=== PATIENT | female | born 1930 | race Caucasian/White ===

== ENCOUNTER 2017-11-18 14:46 | Emergency (ER) | payer MEDICARE ==
[2017-11-18 15:04] VITALS: PULSE 80
--- NOTE | 2017-11-18 15:10 | ERPHSYRPT ---
- History of Present Illness Time Seen by Provider: 11/18/17 15:07 Source: patient, EMS Exam Limitations: no limitations Patient Subjective Stated Complaint: c/o pain to right upper arm intermittently over the past month. denies injury. Triage Nursing Assessment: to cot per ems cot. skin w/d, color normal, resp easy. no injury noted to arm. good radial pulse. Physician History: The patient is an 87-year-old right-handed female who [facility] she has complained of intermittent right arm and shoulder pain for about 2 months. She thinks that the nurses lift her too quickly by using her arms. She complains also that she slipped 2 weeks ago while sitting on a plastic chair in the shower. She moves her right arm without any difficulty. She did not take any Tylenol or ibuprofen. She states "I just want an x-ray". Occurred: other (2 months) Method of Injury: unknown Quality: intermittent, aching Severity of Pain-Max: moderate Severity of Pain-Current: mild Extremities Pain Location: shoulder: right, arm: right Modifying Factors: Improves With: nothing. Worsens With: pain medication Associated Symptoms: none Allergies/Adverse Reactions: codeine Allergy (Verified 11/18/17 15:05) Home Medications: Acetaminophen 325 mg [Tylenol 325 mg] 325 mg PO Q4HPRN PRN 11/18/17 [ History] Aspirin EC 81 mg [Ecotrin 81 mg] 81 mg PO DAILY 11/18/17 [History] Atorvastatin Calcium [Lipitor] 20 mg PO HS 11/18/17 [History] Calcium Carbonate/Vitamin D3 [Vitamin D-3 400 Units Tablet] 1 each PO DAILY [History] Docusate Sodium 100 mg [Colace 100 MG] 100 mg PO DAILY 11/18/17 [History] Gabapentin [Neurontin] 100 mg PO HS 11/18/17 [History] Levothyroxine Sodium 100 Mcg [Synthroid 100 Mcg] 100 mcg PO DAILY 11/18/17 [History] Lisinopril 10 mg [Zestril 10 MG] 10 mg PO HS 11/18/17 [History] Lutein 40 mg PO HS 11/18/17 [History] Meclizine HCl 25 mg [Antivert 25 mg] 25 mg PO Q12H PRN PRN 11/18/17 [ History] Vitamin E 400 Units [Vitamin E 400 UNIT SOFTGEL] 400 unit PO DAILY [History] Hx Tetanus, Diphtheria Vaccination/Date Given: No Hx Influenza Vaccination/Date Given: No Hx Pneumococcal Vaccination/Date Given: Yes - Review of Systems Constitutional: No Fever, No Chills Eyes: No Symptoms Ears, Nose, & Throat: No Symptoms Respiratory: No Cough, No Dyspnea Cardiac: No Chest Pain, No Edema, No Syncope Abdominal/Gastrointestinal: No Abdominal Pain, No Nausea, No Vomiting, No Diarrhea Genitourinary Symptoms: No Dysuria Musculoskeletal: Myalgias Skin: No Rash Neurological: No Dizziness, No Focal Weakness, No Sensory Changes Psychological: No Symptoms Endocrine: No Symptoms Hematologic/Lymphatic: No Symptoms Immunological/Allergic: No Symptoms All Other Systems: Reviewed and Negative - Past Medical History Pertinent Past Medical History: Yes Neurological History: Dementia ENT History: Cataracts Endocrine Medical History: Diabetes Type II, Hypothyroidism GI Medical History: Other Other Medical History: constipation - Past Surgical History Past Surgical History: Yes Gastrointestinal: Appendectomy, Cholecystectomy Musculoskeletal: Orthopedic Surgery Other Surgical History: artificial left knee - Social History Smoking Status: Never smoker Exposure to second hand smoke: No Drug Use: none Patient Lives Alone: No - Female History Hx Now: No - Nursing Vital Signs Nursing Vital Signs: Initial Vital Signs Temperature 97.9 F 11/18/17 14:49 Pulse Rate 80 11/18/17 14:49 Respiratory Rate 18 11/18/17 14:49 Blood Pressure 138/59 11/18/17 14:49 O2 Sat by Pulse Oximetry 97 11/18/17 14:49 Pain Scale Pain Intensity 0 - Physical Exam General Appearance: alert Eyes, Ears, Nose, Throat Exam: moist mucous membranes Neck Exam: non-tender, supple Cardiovascular/Respiratory Exam: chest non-tender, normal breath sounds, regular rate/rhythm, no respiratory distress Abdominal Exam: non-tender, No guarding Back Exam: normal inspection, No vertebral tenderness Shoulder Exam: non-tender, normal ROM Elbow/Forearm Exam: normal inspection Wrist Exam: normal inspection Hand Exam: normal inspection Neuro/Tendon Exam: normal sensation, normal motor functions Mental Status Exam: alert, oriented x 3, cooperative Skin Exam: normal color, warm, dry SpO2 Interpretation: normal SpO2: 97 Oxygen Delivery: Room Air - Radiology Exams Right Humerus X-ray Interpretation: Interpreted by me, Displaced Fracture (right humeral neck fracture) Right Shoulder X-ray Interpretation: Interpreted by me, Displaced Fracture (right humeral neck fracture) Ordered Tests: Active Orders 24 hr Category Date Time Status Sling Application STAT Care 11/18/17 16:31 Active HUMERUS Stat Exams 11/18/17 15:11 Taken SHOULDER Stat Exams 11/18/17 15:11 Taken Medication Summary Discontinued Medications Generic Name Dose Route Start Last Admin Trade Name Freq PRN Reason Stop Dose Admin Acetaminophen 1,000 mg 11/18/17 15:11 11/18/17 15:22 Tylenol Extra Strength 500 Mg PO 11/18/17 15:12 1,000 mg STAT STA Administration Acetaminophen Confirm 11/18/17 15:21 Tylenol Extra Strength 500 Mg Administered 11/18/17 15:22 Dose 1,000 mg .ROUTE .STK-MED ONE - Progress Progress: unchanged Discussed with : Mack Counseled pt/family regarding: diagnosis, rad results - Departure Time of Disposition: 16:30 Departure Disposition: Transfer ([facility] per Dr Giron and Dr Joshi) Clinical Impression: Fracture of neck of right humerus Condition: Good Critical Care Time: No Referrals: YNES BROWN [Primary Care Provider] -
[2017-11-18] MEDS ORDERED: TYLENOL EXTRA STRENGTH 500 MG PO STA (15:11)
[2017-11-18] MEDS ORDERED: TYLENOL EXTRA STRENGTH 500 MG ONE (15:21)
[2017-11-18 17:04] VITALS: BP 154/94; O2SAT 99
--- NOTE | 2017-11-18 21:01 | XRAY ---
Indication: Pain following fall 2 weeks ago. Comparison: None 3 views of the right shoulder demonstrates osteopenia, remote appearing angulated/impacted humeral neck fracture, moderate glenohumeral/AC degenerative arthropathy, and multilevel spinal degenerative spondylosis. No other bony, articular, or soft tissue abnormalities.
--- NOTE | 2017-11-18 21:01 | XRAY ---
Indication: Pain following fall 2 weeks ago. Comparison: None 2 views of the right humerus demonstrates osteopenia, remote appearing angulated/impacted humeral neck fracture, moderate glenohumeral/AC degenerative arthropathy, and multilevel spinal degenerative spondylosis. No other bony, articular, or soft tissue abnormalities.
== END 2017-11-18 17:37 | disposition short-term general hospital (02) ==
LOC: ED 14:46
DX: S42.211A Unspecified displaced fracture of surgical neck of right humerus, initial encounter for closed fracture (principal); Z79.899 Other long term (current) drug therapy
CPT/HCPCS: 36000; 73030; 73060; 99285; A9270-GY

== ENCOUNTER 2017-12-18 06:49 | Emergency (ER) | payer MEDICARE ==
[2017-12-18] MEDS ORDERED: Zofran 4 MG/2 ML VIAL IV ONE (07:13)
[2017-12-18] MEDS ORDERED: Sodium Chloride 0.9% 1000 ML 1,000 ML IV SCH (07:15)
--- NOTE | 2017-12-18 07:18 | ERPHSYRPT ---
- History of Present Illness Time Seen by Provider: 12/18/17 07:06 Source: patient, EMS Exam Limitations: no limitations Patient Subjective Stated Complaint: UNSURE HOW SHE FELL. [facility]IV[facility] TOLD ems THAT SHE FELL BACKWARDS. PAIN IN MID BACK. Triage Nursing Assessment: ALERT AND IN DISTRESS. PAIN IN MIDBACK.. REMOVED FROM BACK BOARD WITH MD HUNT. PAIN IN RIGHT RIBS. STAES FEELS LIKE BREATHING NOT RIGHT. DENIES LOC. NICOLASA. Physician History: 87 y/o female sent from assisted living facility for unwitnessed fall. Pt says she just collapsed while walking back from the bathroom. Pt arrives with severe mid back pain and right rib pain. Pt is on ASA and there was no LOC. Pt describes the pain as sharp, constant, 7/10, worse with movement and pt has not taken any pain meds. Pt denies any shortness of breath, abdominal pain, headache or neck pain. Occurred: just prior to arrival Reason for Fall: unknown Injuries/Pain Location: chest, back, middle Loss of Consciousness: no loss of consciousness Quality: sharpness Severity of Pain-Max: severe Severity of Pain-Current: severe Modifying Factors: Improves With: nothing Associated Symptoms (Fall): denies symptoms Allergies/Adverse Reactions: codeine Allergy (Verified 11/18/17 15:05) Home Medications: Acetaminophen 325 mg [Tylenol 325 mg] 325 mg PO Q4HPRN PRN 11/18/17 [ History] Aspirin EC 81 mg [Ecotrin 81 mg] 81 mg PO DAILY 11/18/17 [History] Atorvastatin Calcium [Lipitor] 20 mg PO HS 11/18/17 [History] Calcium Carbonate/Vitamin D3 [Vitamin D-3 400 Units Tablet] 1 each PO DAILY [History] Docusate Sodium 100 mg [Colace 100 MG] 100 mg PO DAILY 11/18/17 [History] Gabapentin [Neurontin] 100 mg PO HS 11/18/17 [History] Insulin NPH Human Isophane [Humulin N] 10 units SQ HS 11/18/17 [History] Insulin NPH Human Isophane [Humulin N] 20 unit SQ DAILY 11/18/17 [History] Levothyroxine Sodium 100 Mcg [Synthroid 100 Mcg] 100 mcg PO DAILY 11/18/17 [History] Lisinopril 10 mg [Zestril 10 MG] 10 mg PO HS 11/18/17 [History] Lutein 40 mg PO HS 11/18/17 [History] Meclizine HCl 25 mg [Antivert 25 mg] 25 mg PO Q12H PRN PRN 11/18/17 [ History] Vitamin E 400 Units [Vitamin E 400 UNIT SOFTGEL] 400 unit PO DAILY [History] Hx Tetanus, Diphtheria Vaccination/Date Given: No Hx Influenza Vaccination/Date Given: Yes Hx Pneumococcal Vaccination/Date Given: Yes - Review of Systems Constitutional: No Fever, No Chills Eyes: No Symptoms Ears, Nose, & Throat: No Symptoms Respiratory: No Cough, No Dyspnea Cardiac: Chest Pain, No Edema, No Syncope Abdominal/Gastrointestinal: No Abdominal Pain, No Nausea, No Vomiting, No Diarrhea Genitourinary Symptoms: No Dysuria Musculoskeletal: Back Pain, No Neck Pain Skin: No Rash Neurological: No Dizziness, No Focal Weakness, No Sensory Changes Psychological: No Symptoms Endocrine: No Symptoms All Other Systems: Reviewed and Negative - Past Medical History Pertinent Past Medical History: Yes Neurological History: Dementia ENT History: Cataracts Endocrine Medical History: Diabetes Type II, Hypothyroidism GI Medical History: Other Other Medical History: constipation - Past Surgical History Past Surgical History: Yes Gastrointestinal: Appendectomy, Cholecystectomy Musculoskeletal: Orthopedic Surgery Other Surgical History: artificial left knee - Social History Smoking Status: Never smoker Exposure to second hand smoke: No Drug Use: marijuana Patient Lives Alone: No - Female History Hx Now: No - Nursing Vital Signs Nursing Vital Signs: Initial Vital Signs Pulse Rate 86 12/18/17 06:55 Respiratory Rate 20 12/18/17 06:55 Blood Pressure 193/73 12/18/17 06:55 O2 Sat by Pulse Oximetry 98 12/18/17 06:55 Pain Scale Pain Intensity [Right Anterior 7 Generalized] Pain Intensity 1 - [place] Coma Score Best Eye Response ([place]): (4) open spontaneously Best Verbal Response ([place]): (5) oriented Best Motor Response ([place]): (6) obeys commands [place] Total: 15 - Physical Exam General Appearance: moderate distress, alert Head Injury: no evidence of injury Eye Exam: PERRL/EOMI ENT Exam: airway nml Neck Exam: supple, trachea midline, normal inspection, No tenderness Respiratory/Chest Exam: normal breath sounds, No chest tenderness, No respiratory distress Cardiovascular Exam: normal heart sounds, regular rate/rhythm Gastrointestinal Exam: soft, No tenderness, No distention, No guarding, No ecchymosis Back Exam: normal inspection, vertebral tenderness, point tenderness Extremity Exam: normal inspection, normal range of motion, pelvis stable, No deformities Neurologic Exam: alert, oriented x 3, cooperative, sensation nml, No motor deficits Skin Exam: normal color, warm, dry SpO2: 98 Oxygen Delivery: Room Air - Course Nursing assessment & vital signs reviewed: Yes EKG Interpreted by Me: RATE, NORMAL AXIS, NORMAL INTERVALS, NORMAL QRS, Right Bundle Branch Block Ordered Tests: Active Orders 24 hr Category Date Time Status [employer] STAT Care 12/18/17 07:14 Active Cervical Collar Application STAT Care 12/18/17 09:42 Active EKG-ER Only STAT Care 12/18/17 07:13 Active Flannery [Catheter-[place] Flannery] STAT Care 12/18/17 07:18 Active IV Insertion STAT Care 12/18/17 07:13 Active ABDOMEN AND PELVIS W/0 CONTRAS [CT] Stat Exams 12/18/17 07:14 Completed CERVICAL SPINE WO CONTRAST [CT] Stat Exams 12/18/17 07:14 Completed CHEST WITHOUT CONTRAST [CT] Stat Exams 12/18/17 07:13 Completed HEAD WITHOUT CONTRAST [CT] Stat Exams 12/18/17 07:14 Completed RECONSTRUCTION [CT] Stat Exams 12/18/17 07:13 Completed RECONSTRUCTION [CT] Stat Exams 12/18/17 07:14 Completed CBC W DIFF Stat Lab 12/18/17 07:15 Completed CMP Stat Lab 12/18/17 07:15 Completed PROTIME WITH INR Stat Lab 12/18/17 07:15 Completed PTT Stat Lab 12/18/17 07:15 Completed TROPONIN Q3H Lab 12/18/17 07:15 Completed UA W/ MICROSCOPIC Stat Lab 12/18/17 09:33 Completed Medication Summary Generic Name Dose Route Start Last Admin Trade Name Freq PRN Reason Stop Dose Admin Sodium Chloride 1,000 mls @ 100 mls/hr 12/18/17 07:15 12/18/17 07:25 Sodium Chloride 0.9% 1000 Ml IV 01/17/18 07:14 100 mls/hr .Q10H GANGA Administration Discontinued Medications Generic Name Dose Route Start Last Admin Trade Name Marylou PRN Reason Stop Dose Admin Acetaminophen 1,000 mg 12/18/17 07:37 12/18/17 07:44 Tylenol Extra Strength 500 Mg PO 12/18/17 07:38 1,000 mg ONCE ONE Administration Acetaminophen Confirm 12/18/17 07:40 Tylenol Extra Strength 500 Mg Administered 12/18/17 07:41 Dose 1,000 mg .ROUTE .STK-MED ONE Morphine Sulfate 4 mg 12/18/17 07:13 12/18/17 07:33 Morphine Sulfate 4 Mg Inj IV 12/18/17 07:14 Not Given STAT ONE Morphine Sulfate Confirm 12/18/17 07:20 Morphine Sulfate 4 Mg Inj Administered 12/18/17 07:21 Dose 4 mg .ROUTE .STK-MED ONE Ondansetron HCl 4 mg 12/18/17 07:13 12/18/17 07:24 Zofran 4 Mg/2 Ml Vial IV 12/18/17 07:14 4 mg STAT ONE Administration Ondansetron HCl Confirm 12/18/17 07:20 Zofran 4 Mg/2 Ml Vial Administered 12/18/17 07:21 Dose 4 mg .ROUTE .STK-MED ONE Lab/Rad Data: Laboratory Result Diagrams 12/18/17 07:15 12/18/17 07:15 Laboratory Results 12/18/17 12/18/17 12/18/17 Range/Units 09:33 07:15 07:15 WBC (4.0-10.5) K/mm3 RBC (4.1-5.4) M/mm3 Hgb (12.0-16.0) gm/dl Hct (35-47) % MCV (78-100) fl MCH (26-32) pg MCHC (32-36) g/dl RDW (11.5-14.0) % Plt Count (150-450) K/mm3 MPV (6-9.5) fl Gran % (36.0-66.0) % Eos # (Auto) (0-0.5) Absolute Lymphs (auto) (1.0-4.6) Absolute Monos (auto) (0.0-1.3) Lymphocytes % (24.0-44.0) % Monocytes % (0.0-12.0) % Eosinophils % (0.00-5.0) % Basophils % (0.0-0.4) % Absolute Granulocytes (1.4-6.9) Basophils # (0-0.4) PT 12.0 (9.95-12.35) SECONDS INR 1.08 (0.8-3.0) APTT 30.4 (25.3-37.0) SECONDS Sodium (137-145) mmol/L Potassium (3.5-5.1) mmol/L Chloride (98-107) mmol/L Carbon Dioxide (22-30) mmol/L Anion Gap (5-15) MEQ/L BUN (7-17) mg/dL Creatinine (0.52-1.04) mg/dL Estimated GFR ML/MIN Glucose (74-106) mg/dL Calcium (8.4-10.2) mg/dL Total Bilirubin (0.2-1.3) mg/dL AST (14-36) U/L ALT (0-35) U/L Alkaline Phosphatase (38-126) U/L Troponin I < 0.012 (0.000-0.034) ng/mL Serum Total Protein (6.3-8.2) g/dL Albumin (3.5-5.0) g/dL Ur Collection Type CLEAN CATCH Urine Color YELLOW (YELLOW) Urine Appearance CLEAR (CLEAR) Urine pH 5.0 (5-6) Ur Specific [place] 1.010 (1.005-1.025) Urine Protein NEGATIVE (Negative) Urine Ketones NEGATIVE (NEGATIVE) Urine Blood NEGATIVE (0-5) Volodymyr/ul Urine Nitrite NEGATIVE (NEGATIVE) Urine Bilirubin NEGATIVE (NEGATIVE) Urine Urobilinogen NORMAL (0-1) mg/dL Ur Leukocyte Esterase 1+ (NEGATIVE) Urine Microscopic RBC 0-2 (0-2) /HPF Urine Microscopic WBC 0-2 (0-5) /HPF Ur Epithelial Cells RARE (FEW) /HPF Urine Bacteria FEW (NEGATIVE) /HPF Urine Mucus SLIGHT (NEGATIVE) /HPF Urine Culture Reflexed NO (NO) Urine Glucose NEGATIVE (NEGATIVE) mg/dL Specimen Received 12/18/17 0930 12/18/17 12/18/17 Range/Units 07:15 07:15 WBC 7.5 (4.0-10.5) K/mm3 RBC 4.29 (4.1-5.4) M/mm3 Hgb 13.0 (12.0-16.0) gm/dl Hct 40.2 (35-47) % MCV 93.7 (78-100) fl MCH 30.3 (26-32) pg MCHC 32.3 (32-36) g/dl RDW 12.9 (11.5-14.0) % Plt Count 180 (150-450) K/mm3 MPV 9.8 H (6-9.5) fl Gran % 52.6 (36.0-66.0) % Eos # (Auto) 0.20 (0-0.5) Absolute Lymphs (auto) 2.36 (1.0-4.6) Absolute Monos (auto) 0.97 (0.0-1.3) Lymphocytes % 31.6 (24.0-44.0) % Monocytes % 13.0 H (0.0-12.0) % Eosinophils % 2.7 (0.00-5.0) % Basophils % 0.1 (0.0-0.4) % Absolute Granulocytes 3.93 (1.4-6.9) Basophils # 0.01 (0-0.4) PT (9.95-12.35) SECONDS INR (0.8-3.0) APTT (25.3-37.0) SECONDS Sodium 142 (137-145) mmol/L Potassium 4.3 (3.5-5.1) mmol/L Chloride 103 (98-107) mmol/L Carbon Dioxide 29 (22-30) mmol/L Anion Gap 13.9 (5-15) MEQ/L BUN 22 H (7-17) mg/dL Creatinine 0.81 (0.52-1.04) mg/dL Estimated GFR > 60 ML/MIN Glucose 95 (74-106) mg/dL Calcium 9.5 (8.4-10.2) mg/dL Total Bilirubin 0.40 (0.2-1.3) mg/dL AST 24 (14-36) U/L ALT 14 (0-35) U/L Alkaline Phosphatase 89 (38-126) U/L Troponin I (0.000-0.034) ng/mL Serum Total Protein 7.3 (6.3-8.2) g/dL Albumin 4.1 (3.5-5.0) g/dL Ur Collection Type Urine Color (YELLOW) Urine Appearance (CLEAR) Urine pH (5-6) Ur Specific [place] (1.005-1.025) Urine Protein (Negative) Urine Ketones (NEGATIVE) Urine Blood (0-5) Volodymyr/ul Urine Nitrite (NEGATIVE) Urine Bilirubin (NEGATIVE) Urine Urobilinogen (0-1) mg/dL Ur Leukocyte Esterase (NEGATIVE) Urine Microscopic RBC (0-2) /HPF Urine Microscopic WBC (0-5) /HPF Ur Epithelial Cells (FEW) /HPF Urine Bacteria (NEGATIVE) /HPF Urine Mucus (NEGATIVE) /HPF Urine Culture Reflexed (NO) Urine Glucose (NEGATIVE) mg/dL Specimen Received - Progress Progress: unchanged Progress Note: 12/18/17 10:[address] cervical spine shows a C1 posterior arch fracture and C6 vertebral body fracture. The CT T spine shows a T3 compression deformity and a right 4th rib fracture. Pt is refusing any pain meds. The cardiac workup is negative. I spoke to the son who wants the patient transferred to . Pt has been accepted by trauma surgeon, Dr Rubin at [facility]. - Departure Time of Disposition: 10:33 Departure Disposition: Transfer Clinical Impression: Cervical spine fracture Qualifiers: Encounter type: initial encounter Cervical vertebra fracture level: C1 Fracture type: closed Fracture morphology: unspecified fracture morphology Fracture alignment: nondisplaced Qualified Code(s): S12.001A - Unspecified nondisplaced fracture of first cervical vertebra, initial encounter for closed fracture C6 cervical fracture Qualifiers: Encounter type: initial encounter Fracture type: closed Fracture morphology: unspecified fracture morphology Fracture alignment: nondisplaced Qualified Code( s): S12.501A - Unspecified nondisplaced fracture of sixth cervical vertebra, initial encounter for closed fracture Traumatic compression fracture of T3 thoracic vertebra Qualifiers: Encounter type: initial encounter Fracture type: closed Qualified Code(s): S22.030A - Wedge compression fracture of third thoracic vertebra, initial encounter for closed fracture Rib fracture Qualifiers: Encounter type: initial encounter Rib fracture type: single rib Fracture type: closed Laterality: right Qualified Code(s): S22.31XA - Fracture of one rib, right side, initial encounter for closed fracture Condition: Fair Critical Care Time: Yes Critical Care Time(excluding separately billable procedures): 30-74 minutes Referrals: YNES BROWN [Primary Care Provider] -
[2017-12-18] MEDS ORDERED: MORPHINE SULFATE 4 MG INJ ONE (07:20)
[2017-12-18] MEDS ORDERED: Sodium Chloride 0.9% 1000 ML 1,000 ML ONE (07:20)
[2017-12-18] MEDS ORDERED: Zofran 4 MG/2 ML VIAL ONE (07:20)
[2017-12-18] MEDS: MORPHINE SULFATE 4 MG INJ IV ONE ×2 (07:24→07:33)
[2017-12-18 07:36] LABS: BASOPHIL % 0.1 % (0.0-0.4); Basophil (Absolute #) 0.01 (0-0.4); Eosinophil % 2.7 % (0.00-5.0); Granulocyte Absolute (ANC) 3.93 (1.4-6.9); Granulocytes % 52.6 % (36.0-66.0); Hematocrit 40.2 % (35-47); Lymphocyte (Absolute #) 2.36 (1.0-4.6); Lymphocytes % 31.6 % (24.0-44.0); Mean Cell Volume 93.7 fl (78-100); Mean Corpuscular Hemoglobin 30.3 pg (26-32); Mean Corpuscular Hgb Concent. 32.3 g/dl (32-36); Mean Platelet Volume 9.8 fl (6-9.5); Monocyte (Absolute #) 0.97 (0.0-1.3); Platelet Count 180 K/mm3 (150-450); Red Blood Count 4.29 M/mm3 (4.1-5.4); Red Cell Distribution Width 12.9 % (11.5-14.0); White Blood Count 7.5 K/mm3 (4.0-10.5)
[2017-12-18] MEDS ORDERED: TYLENOL EXTRA STRENGTH 500 MG PO ONE (07:37)
[2017-12-18] MEDS ORDERED: TYLENOL EXTRA STRENGTH 500 MG ONE (07:40)
[2017-12-18 07:53] LABS: ALBUMIN 4.1 g/dL (3.5-5.0); ALKALINE PHOSPHATASE 89 U/L (38-126); ANION GAP 13.9 MEQ/L (5-15); BLOOD UREA NITROGEN 22 mg/dL (7-17); CHLORIDE 103 mmol/L (98-107); Calcium 9.5 mg/dL (8.4-10.2); Carbon Dioxide 29 mmol/L (22-30); Creatinine 1 0.81 mg/dL (0.52-1.04); Glucose 95 mg/dL (74-106); Potassium 4.3 mmol/L (3.5-5.1); SGOT/AST 24 U/L (14-36); SGPT/ALT 14 U/L (0-35); SODIUM 142 mmol/L (137-145); Total Protein 7.3 g/dL (6.3-8.2)
[2017-12-18 07:59] LABS: INR 1.08 (0.8-3.0)
[2017-12-18 08:02] LABS: PTT 30.4 SECONDS (25.3-37.0)
--- NOTE | 2017-12-18 09:30 | XRAY ---
Indication: Head injury following fall. Multiple contiguous axial images obtained through the head without contrast. Comparison: None Age-appropriate global atrophy and mild periventricular degenerative micro-ischemia bilaterally. No acute intracranial hemorrhage, abnormal extra-axial fluid collection, or mass effect. Fourth ventricle is midline. Bony calvarium intact. Visualized paranasal sinuses and mastoid air cells are clear. CT cervical spine reported separately. Impression: Nonacute senile brain. CT DI 51.47
[2017-12-18 09:36] LABS: Appearance CLEAR (CLEAR); Bilirubin NEGATIVE (NEGATIVE); Blood NEGATIVE Ery/ul (0-5); Glucose NEGATIVE (NEGATIVE); Ketones NEGATIVE (NEGATIVE); Leukocyte Esterase 1+ (NEGATIVE); Nitrite NEGATIVE (NEGATIVE); Protein,Urine Dip NEGATIVE (Negative); Urobilinogen NORMAL mg/dL (0-1)
--- NOTE | 2017-12-18 09:40 | XRAY ---
Indication: Neck pain following fall. Multiple contiguous axial images obtained through the cervical spine. Two-dimensional sagittal and coronal reformatted images obtained. Comparison: None Osseous structures demineralized consistent with patient's age. Posterior arch of C1 demonstrates nondisplaced acute fracture on the right and nondisplaced healing fracture on the left. No suspicious bony lesions or spinal canal stenosis. Minimal C4-C6 degenerative endplate spurring and mild multilevel degenerative facet arthropathy, left greater than right. Sagittal and coronal reformatted images demonstrates slight straightening of cervical lordosis, positional versus paraspinal spasm. Anterior superior C6 vertebral body demonstrates nondisplaced corner fracture best seen on sagittal reconstructive images with minimal superior endplate depression less than 10%. Minimal anterior C5 anterior wedging with less than 20% height loss of uncertain chronicity. No acute compression fracture, subluxation, or jumped facet. Normal-appearing craniocervical junction. Visualized noncontrasted soft tissues demonstrates mild scattered carotid calcifications bilaterally. Bilateral jugular vein intraluminal air bubbles presumed iatrogenic. CT head and CT chest reported severally. Impression: 1. Nondisplaced C1 posterior arch fractures as detailed. 2. C6 vertebral body acute fracture. Also C5 anterior wedging deformity of uncertain chronicity. 3. Osteopenia and multilevel degenerative changes. CT DI 110.54
[2017-12-18 09:43] LABS: Bacteria FEW /HPF (NEGATIVE); Epithelial Cells RARE /HPF (FEW); Mucus SLIGHT /HPF (NEGATIVE); WBC 0-2 /HPF (0-5)
--- NOTE | 2017-12-18 09:48 | XRAY ---
Indication: Pain following fall. Multiple contiguous axial images obtained through the chest without contrast as ordered. Comparison: None Lungs demonstrates mild/moderate bilateral dependent atelectasis, minimal bibasilar fibrosis/scarring, and left upper lobe calcified granuloma. No suspicious pulmonary mass, infiltrate, effusion, or pneumothorax. Heart is not enlarged. Aorta is moderately arteriosclerotic without aneurysmal dilatation. No pathologic mediastinal lymphadenopathy. Osseous structures demineralized consistent with patient's age. Multilevel flowing endplate osteophytes. Remote appearing T3/L1 compression fractures with more than 50% height loss. Also remote appearing right 4th rib and right humeral head/neck fracture. CT abdomen reported separately. Impression: Nonacute CT chest without contrast exam with chronic features as detailed. CT DI 17.77
--- NOTE | 2017-12-18 09:54 | XRAY ---
Indication: Pain following fall. Multiple contiguous axial images obtained through the abdomen and pelvis without contrast as ordered. Comparison: None CT chest reported separately. Noncontrasted stomach and bowel loops appear nonobstructed. Previous cholecystectomy. No free fluid/air. Remaining liver, pancreas, spleen, adrenal glands, kidneys, ureters, bladder, and uterus appear unremarkable for noncontrast exam. Mild aortoiliac calcifications without AAA. Osseous structures demineralized consistent with patient's age. Mild multilevel degenerative spondylosis greatest at the lumbosacral disc level as evidenced by degenerative vacuum disc phenomena and bilateral degenerative facet hypertrophy. Remote L1 compression deformity with more than 50% height loss. Impression: 1. No acute intra-abdominal/pelvic abnormalities on this noncontrast exam. 2. Osteopenia, multilevel degenerative spondylosis, and remote L1 compression deformity. CT DI 17.77
--- NOTE | 2017-12-18 09:58 | XRAY ---
Indication: Pain following fall. Axial, coronal, and sagittal reformatted images of the lumbar spine obtained using the raw data from the CT abdomen/pelvis study of the same day. Comparison: None Osseous structures demineralized consistent with patient's age. Mild multilevel degenerative spondylosis greatest at the lumbosacral disc level as evidenced by degenerative vacuum disc phenomena and bilateral degenerative facet hypertrophy. Remote L1 compression deformity with more than 50% height loss. SI joints are bilaterally symmetric. CT abdomen/pelvis reported separately. Impression: 1. Negative acute fracture/subluxation. 2. Osteopenia, multilevel degenerative spondylosis, and remote L1 compression deformity.
--- NOTE | 2017-12-18 10:08 | XRAY ---
Indication: Pain following fall. Axial, coronal, and sagittal reformatted images of the thoracic spine obtained using the raw data from the CT chest study of the same day. Comparison: None Osseous structures demineralized consistent with patient's age. Multilevel flowing endplate osteophytes. Remote appearing T3 compression deformity with more than 50% height. Also remote appearing right 4th rib fracture. CT chest and CT lumbar spine reported separately. Impression: 1. Negative acute fracture/subluxation. 2. Osteopenia, multilevel degenerative endplate spurring, remote T3 compression deformity, and remote right 4th rib fracture.
[2017-12-18 11:27] VITALS: BP 132/73; PULSE 88; O2SAT 18
== END 2017-12-18 11:28 | disposition short-term general hospital (02) ==
LOC: ED 06:49
DX: S12.001A Unspecified nondisplaced fracture of first cervical vertebra, initial encounter for closed fracture (principal); S12.501A Unspecified nondisplaced fracture of sixth cervical vertebra, initial encounter for closed fracture; S22.030A Wedge compression fracture of third thoracic vertebra, initial encounter for closed fracture; S22.31XA Fracture of one rib, right side, initial encounter for closed fracture; W18.30XA Fall on same level, unspecified, initial encounter; Y92.129 Unspecified place in nursing home as the place of occurrence of the external cause; M54.6 Pain in thoracic spine; R07.81 Pleurodynia; R07.9 Chest pain, unspecified; Z79.899 Other long term (current) drug therapy
CPT/HCPCS: 36000; 36415; 51702; 70450; 71250; 72125; 74176; 76376; 80053; 81000; 84484; 85025; 85610; 85730; 93005; 93041; 96360; 96361; 99284; J2270; J2405; L0172; A9270-GY

== ENCOUNTER 2018-06-25 08:58 | Emergency (ER) | payer MEDICARE ==
[2018-06-25 09:08] VITALS: O2SAT 95
[2018-06-25] MEDS ORDERED: TYLENOL 325 MG PO ONE (09:21)
--- NOTE | 2018-06-25 09:27 | ERPHSYRPT ---
- History of Present Illness Time Seen by Provider: 06/25/18 09:16 Source: patient, EMS Exam Limitations: no limitations Patient Subjective Stated Complaint: PT HERE FOR A SHORT FALL, SHE STATES SHE WAS GETTING OUT OF BED AND SLIPPED OFF OF THE BED AND FELL TO GROUND, SHE CO PAIN TO LEFT SECOND TOE AND LEFT KNEE Triage Nursing Assessment: PT AERT, BUT A LITTLE UNSURE OF EVENTS, NO LOC, RESP EASY, SKIN W/D/P. NO EDEMA NOTED, Physician History: 87-year-old white female with history of dementia cataracts, diabetes, hypothyroidism, constipation. Brought by medics with complaint of pain in her left knee, pain in her left foot (tells the nurse left second toe tells me heel) also states she has some mild pain in her left lateral hip with palpation. Apparently had pain in her right elbow per medics but has no pain at this time. She states that she slipped out of bed this morning sliding down onto her bottom injuring herself. She denies any other injury she denies any neck pain she did not hit her head. Past medical history includes dementia, cataracts, diabetes type 2, hypothyroidism, constipation patient has had a cervical fracture in the past. Past surgical history includes appendectomy, cholecystectomy, left knee arthroplasty. He denies tobacco alcohol or illicit drug use. Timing/Duration: today Severity: moderate Modifying Factors: Improves With: nothing Associated Symptoms: denies symptoms Allergies/Adverse Reactions: codeine Allergy (Verified 06/25/18 09:09) Home Medications: Acetaminophen 325 mg [Tylenol 325 mg] 325 mg PO Q4HPRN PRN 11/18/17 [ History] Aspirin EC 81 mg [Ecotrin 81 mg] 81 mg PO DAILY 11/18/17 [History] Atorvastatin Calcium [Lipitor] 20 mg PO HS 11/18/17 [History] Calcium Carbonate/Vitamin D3 [Vitamin D-3 400 Units Tablet] 1 each PO DAILY [History] Docusate Sodium 100 mg [Colace 100 MG] 100 mg PO DAILY 11/18/17 [History] Gabapentin [Neurontin] 100 mg PO HS 11/18/17 [History] Insulin NPH Human Isophane [Humulin N] 10 units SQ HS 11/18/17 [History] Insulin NPH Human Isophane [Humulin N] 20 unit SQ DAILY 11/18/17 [History] Levothyroxine Sodium 100 Mcg [Synthroid 100 Mcg] 100 mcg PO DAILY 11/18/17 [History] Lisinopril 10 mg [Zestril 10 MG] 10 mg PO HS 11/18/17 [History] Lutein 40 mg PO HS 11/18/17 [History] Meclizine HCl 25 mg [Antivert 25 mg] 25 mg PO Q12H PRN PRN 11/18/17 [ History] Vitamin E 400 Units [Vitamin E 400 UNIT SOFTGEL] 400 unit PO DAILY [History] Hx Tetanus, Diphtheria Vaccination/Date Given: No Hx Influenza Vaccination/Date Given: No Hx Pneumococcal Vaccination/Date Given: Yes Immunizations Up to Date: Yes - Review of Systems Constitutional: No Fever, No Chills Eyes: No Symptoms Ears, Nose, & Throat: No Symptoms Respiratory: No Cough, No Dyspnea Cardiac: No Chest Pain, No Edema, No Syncope Abdominal/Gastrointestinal: No Abdominal Pain, No Nausea, No Vomiting, No Diarrhea Genitourinary Symptoms: No Dysuria Musculoskeletal: Other (left hip knee and foot pain.) Skin: No Rash Neurological: No Dizziness, No Focal Weakness, No Sensory Changes Psychological: No Symptoms Endocrine: No Symptoms All Other Systems: Reviewed and Negative - Past Medical History Pertinent Past Medical History: Yes Neurological History: Dementia ENT History: Cataracts Endocrine Medical History: Diabetes Type II, Hypothyroidism GI Medical History: Other Other Medical History: constipation - Past Surgical History Past Surgical History: Yes Gastrointestinal: Appendectomy, Cholecystectomy Musculoskeletal: Orthopedic Surgery Other Surgical History: artificial left knee - Social History Smoking Status: Never smoker Exposure to second hand smoke: No Drug Use: marijuana Patient Lives Alone: No - Female History Hx Last Menstrual Period: POST Hx Now: No - Nursing Vital Signs Nursing Vital Signs: Initial Vital Signs Temperature 97.2 F 06/25/18 09:01 Pulse Rate 100 H 06/25/18 09:01 Respiratory Rate 16 06/25/18 09:01 Blood Pressure 156/71 06/25/18 09:01 O2 Sat by Pulse Oximetry 95 06/25/18 09:01 Pain Scale Pain Intensity 4 - Physical Exam General Appearance: no apparent distress, other (elderly white female in no apparent distress) Eye Exam: PERRL/EOMI, eyes nml inspection Ears, Nose, Throat Exam: normal ENT inspection, TMs normal, pharynx normal, moist mucous membranes Neck Exam: normal inspection, non-tender, supple, full range of motion Respiratory Exam: normal breath sounds, lungs clear, No respiratory distress Cardiovascular Exam: regular rate/rhythm, normal heart sounds, normal peripheral pulses Gastrointestinal/Abdomen Exam: soft, normal bowel sounds, No tenderness, No mass Back Exam: normal inspection, normal range of motion, No CVA tenderness, No vertebral tenderness Extremity Exam: other (left knee mild tenderness with palpation anteriorly, left steep tender left second toe, mild tenderness with palpalpation left lateral hip full range of motion all extremities.) Neurologic Exam: alert, oriented x 3, cooperative, it admin II-XII nml as tested, normal mood/affect, nml cerebellar function, nml station & gait, sensation nml, No motor deficits Skin Exam: normal color, warm, dry, No rash SpO2 Interpretation: normal (95%) SpO2: 95 - Course Nursing assessment & vital signs reviewed: Yes - Radiology Exams Left Foot X-ray Interpretation: Discussed w/ radiologist (x-ray left foot: Osteopenia and tiny heel spurs. No other bony, articular, or soft tissue abnormalies.) Pelvis X-ray Interpretation: Discussed w/ radiologist (X-ray pelvis: Osteopenia and mild degenerative changes of both hips and visualized lower lumbar spine. No other bony, articular, or soft tissue abnormalities) Left Knee X-ray Interpretation: Discussed w/ radiologist (X-ray left knee: Osteopenia and total knee arthroplasty with intact articulation/prosthesis. No other bony, articular, or soft tissue abnormalities.) Ordered Tests: Active Orders 24 hr Category Date Time Status FOOT (MINIMUM 3 VIEWS) Stat Exams 06/25/18 09:21 Completed KNEE (1 OR 2 VIEW) Stat Exams 06/25/18 09:21 Completed PELVIS (1 OR 2 VIEWS) Stat Exams 06/25/18 09:21 Completed Medication Summary Discontinued Medications Generic Name Dose Route Start Last Admin Trade Name Freq PRN Reason Stop Dose Admin Acetaminophen 650 mg 06/25/18 09:21 06/25/18 10:06 Tylenol 325 Mg PO 06/25/18 09:22 650 mg STAT ONE Administration Acetaminophen Confirm 06/25/18 09:33 Tylenol 325 Mg Administered 06/25/18 09:34 Dose 650 mg .ROUTE .STK-MED ONE - Progress Progress: improved Progress Note: 06/25/18 11:25 X-ray of the patient's pelvis, left knee, left foot negative fracture negative subluxation. Patient in no acute distress. - Departure Time of Disposition: 11:35 Departure Disposition: Home Clinical Impression: Left hip pain, Left foot pain Accidental fall Qualifiers: Encounter type: initial encounter Qualified Code(s): W19.XXXA - Unspecified fall, initial encounter Left knee pain Qualifiers: Chronicity: acute Qualified Code(s): M25.562 - Pain in left knee Condition: Fair Critical Care Time: No Referrals: YNES BROWN [Primary Care Provider] - Additional Instructions: Return home. Continued medical current medications and treatments. Tylenol every 4 hours as needed for pain. Follow-up with your family doctor. Return for acute distress or for severe symptoms.
[2018-06-25] MEDS ORDERED: TYLENOL 325 MG ONE (09:33)
--- NOTE | 2018-06-25 10:32 | XRAY ---
Indication: Left hip pain following fall. Comparison: None Single AP pelvis demonstrates osteopenia and mild degenerative changes of both hips and visualized lower lumbar spine. No other bony, articular, or soft tissue abnormalities.
--- NOTE | 2018-06-25 10:34 | XRAY ---
Indication: Pain following fall. Comparison: None 2 views of the left knee demonstrates osteopenia and total knee arthroplasty with intact articulation/prosthesis. No other bony, articular, or soft tissue abnormalities.
--- NOTE | 2018-06-25 10:36 | XRAY ---
Indication: Pain following fall. Comparison: None 3 nonweightbearing views of the left foot demonstrates osteopenia and tiny heel spurs. No other bony, articular, or soft tissue abnormalities.
[2018-06-25 12:18] VITALS: BP 160/77; PULSE 88
== END 2018-06-25 11:50 | disposition home or self-care (01) ==
LOC: ED 08:58
DX: M25.552 Pain in left hip (principal); M79.672 Pain in left foot; M25.562 Pain in left knee; F03.90 Unspecified dementia, unspecified severity, without behavioral disturbance, psychotic disturbance, mood disturbance, and anxiety; E11.9 Type 2 diabetes mellitus without complications; E03.9 Hypothyroidism, unspecified; K59.00 Constipation, unspecified; Z79.4 Long term (current) use of insulin; Z79.899 Other long term (current) drug therapy; W06.XXXA Fall from bed, initial encounter
CPT/HCPCS: 72170; 73560; 73630; 99284; A9270-GY